=== PATIENT | male | born 1965 | race Caucasian/White ===

== ENCOUNTER → 2017-09-28 12:05 | Outpatient (CLI) | payer BC, SELFPAY ==
--- NOTE | 2017-09-28 12:05 | DT_ITS ---
This patient was seen during an EMR downtime September 27, 2017 - October 04, 2017. This patient may have a combination of paper and electronic documentation or all paper documentation. All documentation is viewable within the e-chart portion of [employer] for each patient visit.
[2017-10-03 08:22] LABS: AST(SGOT) 101 U/L (15-37); Alanine Aminotransfer ALT/SGPT 217 U/L (16-61); Albumin, Serum 4.3 g/dL (3.2-5.0); Alkaline Phosphatase 85 U/L (45-117); BUN 9 mg/dL (7-18); Calcium,Total 8.4 mg/dL (8.5-10.1); Cholesterol 275 mg/dL (200); Creatinine, Serum 0.69 mg/dL (0.70-1.30); EST Glomerular Filtration Rate 130 mL/min (>60); Est Glom Filt Rate - Afr Amer 158 mL/min (>60); Globulin 4.2 g/dL (2.2-4.2); Glucose 108 mg/dL (74-106); Protein, Total 8.5 g/dL (6.4-8.2)
[2017-10-03 08:23] LABS: Anion Gap 10 (5-15); Chloride 105 mmol/L (98-107); GGTP 326 U/L (15-85); High Density Lipoprotein 43 mg/dL; Iron 157 ug/dL (65-175); Potassium 4.2 mmol/L (3.5-5.1); Sodium Level 143 mmol/L (136-145); Triglycerides 431 mg/dL
[2017-10-03 08:24] LABS: Ferritin 932 ng/mL (26-388)
[2017-10-03 10:01] LABS: Absolute Lymphocyte Count 1.37 X10^3/ul (0.83-4.51); Basophil% 0.8 % (0-1); Eosinophil# 0.01 X10^3/uL; Eosinophils% 0.3 % (0-5); Hematocrit 48.2 % (40-54); Hemoglobin 16.3 g/dl (13.0-16.5); Lymphocyte # 1.37 X10^3/ul (4.0); Lymphocyte % 34.5 % (19-41); Mean Corp Hgb Conc 33.8 g/gl (32-36); Mean Corpuscular Hgb 32.4 pg (27.0-32.0); Mean Corpuscular Volume 95.8 fL (80-94); Mean Platelet Vol. 9.3 fl (6.2-12.0); Monocyte# 0.35 X10^3/uL; Monocyte% 8.8 % (0-10); Neutrophil % 55.3 % (47-70); POSITIVE COUNT NO; POSITIVE DIFFERENTIAL NO; POSITIVE MORPHOLOGY NO; Platelet Count 274 K/mm3 (150-450); RBC Distribution Width CV 13.2 % (11.6-14.6); RBC Distribution Width SD 46.5 fl (35.1-43.9); Red Blood Count 5.03 M/mm3 (4.6-6.2)
[2017-10-03 10:02] LABS: Basophil# 0.03 X10^3/uL
[2017-10-03 19:30] LABS: Vitamin B12 390 pg/mL (211-911)
== END ==
LOC: MTLAB 10-02 08:49 → MFPLAB 10-02 17:45
PROVIDERS: Family Provider Family Medicine; PCP Family Medicine; Visit Provider Family Medicine
DX: Z00.00 Encounter for general adult medical examination without abnormal findings (principal); R94.5 Abnormal results of liver function studies
CPT/HCPCS: 36415; 80053; 80061; 82607; 82728; 82977; 83540; 85025

== ENCOUNTER → 2017-10-28 08:31 | Outpatient (CLI) | payer BC, SELFPAY ==
--- NOTE | 2017-10-28 08:37 | US_ITS ---
STUDY: ABDOMINAL ULTRASOUND - RIGHT UPPER QUADRANT REASON FOR VISIT: Male, 51 years old. Elevated liver function tests TECHNIQUE: Transverse and longitudinal imaging of the right upper quadrant was performed using real-time ultrasound. COMPARISON: None. FINDINGS: Liver: The liver measures at least 18 cm. There is increased echogenicity of the liver. The direction of portal flow is hepatopetal. There is no demonstrated mass in the liver. Gallbladder: The gallbladder is normal in size. The gallbladder wall measures 2-3 mm. There is a negative sonographic Restrepo's sign. There is no demonstrated pericholecystic fluid. There are no abnormalities in the lumen of the gallbladder. Common Bile Duct (C.B.D.): The common bile duct measures 2.8 mm. Pancreas: The visualized pancreas is within normal limits. There is no demonstrated mass in the pancreas. Right Kidney: The right kidney measures 11.6 cm. The right cortex measures 1.8 cm. There is no demonstrated mass in the right kidney. There is no dilatation of the collecting system. There is no demonstrated free fluid. US/Liver IMPRESSION: The liver is prominent in size with increased echogenicity which can be seen with fatty infiltration. No discrete masses are seen. No abnormalities are seen in the gallbladder. Electronically Signed: Dai Humphrey MD at 19:18 EDT Tel Direct: [phone], Service support ,
== END ==
PROVIDERS: Family Provider Family Medicine; PCP Family Medicine; Visit Provider Family Medicine
DX: R74.8 Abnormal levels of other serum enzymes (principal)
CPT/HCPCS: 76705

== ENCOUNTER 2018-10-17 05:54 | Emergency (ER) | payer SELFPAY ==
[2018-10-17] VITALS (9 sets, daily range): BP systolic 109–130; BP diastolic 50–75; PULSE 81–88; RESP 14–24; TEMP 35.9; O2SAT 97–100; BMI 32.9
--- NOTE | 2018-10-17 06:07 | CT_ITS ---
HISTORY: Altered mental status, jaundice, quit drinking 2 weeks ago. Unable to obtain more history. EXAMINATION: CT Head or Brain W/O Contrast TECHNIQUE: Multiple axial images were obtained of the brain without intravenous contrast. A radiation dose optimization technique was used for this scan. IV Contrast dosage and agent: None. 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 No hydrocephalus. No intracranial mass, hemorrhage, or acute parenchymal abnormality. No suspicious extra-axial fluid collection. The left mastoid air cells are poor developed. Right mastoid is clear. As visualized, the paranasal sinuses are clear. CT/Brain/Head without Contrast IMPRESSION: Negative exam. No intra-cranial hemorrhage or acute disease identified. Individualized dose optimization techniques were used for this CT. at 0717 Reported and signed by: Catarino Ji MD Electronically Signed: Catarino Ji, at 7:16 EDT Tel , Service support ,
--- NOTE | 2018-10-17 06:08 | EKG12_ITS ---
Test Reason : ACHOLOL WITHDRAWAL Blood Pressure : / mmHG Vent. Rate : 083 BPM Atrial Rate : 083 BPM P-R Int : 180 ms QRS Dur : 100 ms QT Int : 422 ms P-R-T Axes : 054 -26 002 degrees QTc Int : 495 ms Normal sinus rhythm Low voltage QRS Nonspecific T wave abnormality Prolonged QT Poor R- wave progression Abnormal ECG Confirmed by YARY KEE, CHANTALE ([id number]), research editor ТАТЬЯНА ARANDA ([id number]) on 10/19/2018 7:43:27 AM Referred By: TRUE Confirmed By:CHANTALE PRINGLE MD
--- NOTE | 2018-10-17 06:13 | ED.RN ---
NO OLD EKGS IN MUSE
[2018-10-17 06:26] LABS: Absolute Lymphocyte Count 1.92 X10^3/ul (0.83-4.51); Absolute Neutrophil Count 26.6 X10^3/uL (2.0-7.7); Basophil# 0.01 X10^3/uL; Hemoglobin 11.5 g/dl (13.0-16.5); Lymphocyte # 1.92 X10^3/ul (4.0); Lymphocyte % 6.5 % (19-41); Mean Corp Hgb Conc 35.9 g/gl (32-36); Mean Corpuscular Volume 97.3 fL (80-94); Mean Platelet Vol. 10.5 fl (6.2-12.0); Monocyte# 1.03 X10^3/uL; Monocyte% 3.5 % (0-10); Neutrophil # 26.59 X10^3/uL (2.7-7.7); Neutrophil % 89.5 % (47-70); Platelet Count 274 K/mm3 (150-450); RBC Distribution Width CV 18.5 % (11.6-14.6); RBC Distribution Width SD 65.5 fl (35.1-43.9); Red Blood Count 3.29 M/mm3 (4.6-6.2); White Blood Count 29.7 K/mm3 (4.4-11.0)
[2018-10-17 06:27] LABS: POSITIVE COUNT YES; POSITIVE DIFFERENTIAL YES; POSITIVE MORPHOLOGY YES
--- NOTE | 2018-10-17 06:27 | ED.RN ---
sacral edema and jaundice noted to eyes,
[2018-10-17 06:28] LABS: Differential Indicated SCAN CRITERIA MET
--- NOTE | 2018-10-17 06:28 | ED.RN ---
per patient stopped drinking 2 weeks ago, patient has been jaundice since 09/30 per patient noticed weeks prior. ascites started earlier this week getting the worst on wednesday
[2018-10-17 06:50] LABS: Bedside Glucose 130 mg/dL (70-110)
--- NOTE | 2018-10-17 06:51 | ED.RN ---
lab called with critical lab results. bun 166 creatine 11[address] Greco made aware no new orders at this time
[2018-10-17 06:58] LABS: ALB/GLOB Ratio 0.4 RATIO (0.9-2.4); AST(SGOT) 266 U/L (15-37); Alanine Aminotransfer ALT/SGPT 118 U/L (16-61); Albumin, Serum 1.5 g/dL (3.2-5.0); Alkaline Phosphatase 226 U/L (45-117); Anion Gap 23 (5-15); BUN 166 mg/dL (7-18); BUN/Creat Ratio 14.7 RATIO (10-20); Calcium,Total 7.1 mg/dL (8.5-10.1); Chloride 100 mmol/L (98-107); EST Glomerular Filtration Rate 5 mL/min (>60); Est Glom Filt Rate - Afr Amer 6 mL/min (>60); Estimated Creatinine Clearance 7.57 ml/min; Globulin 3.4 g/dL (2.2-4.2); Glucose 123 mg/dL (74-106); Lipase 320 U/L (73-393); Potassium 4.7 mmol/L (3.5-5.1); Protein, Total 4.9 g/dL (6.4-8.2); Sodium Level 134 mmol/L (136-145)
[2018-10-17 07:00] LABS: Platelet Estimate ADEQUATE (ADEQ)
[2018-10-17 07:01] LABS: Differential Comment SCANNED
--- NOTE | 2018-10-17 07:16 | ED.DCSUM_ITS ---
- ER Visit Summary Date of Service: 10/17/18 Chief Complaint: Altered mental status History of Present Illness: The patient is a 52 M who presents with altered mental status that is been getting worse over the past week. noticed that the patient was beginning to get jaundice approximately 3 to 4 weeks ago. noticed that the patient was starting to not act right over the past week. states that the patient has a history of alcohol abuse. states the patient has stopped drinking but still binge drinks at times. Patient is nonverbal and is a poor historian. Physical Examination: Vital signs are stable. Patient is afebrile. Patient is nonverbal. Patient is jaundiced. Heart was regular rate and rhythm. Lungs are clear and equal bilateral. Abdomen is soft. There is some distention noted. There is no guarding noted. Cranial nerves II through XII are grossly intact. Patient is uncooperative with motor and sensory testing. Test Results: EKG showed normal sinus rhythm with a rate of 83. There are no acute ST or T wave changes. CBC shows a leukocytosis of 29.7. Comprehensive metabolic profile shows an elevated BUN of 166 and a creatinine of 11.3. Total bilirubin was 29.8. Alk phos was 226. ALT was 118 and AST was 266. Ammonia level was elevated at 180. Troponin was normal. CT scan of the brain was obtained. Emergency Department Course and Treatment: Patient was given IV fluids. Patient was given a dose of rectal lactulose. Patient was still nonverbal on reevaluation. Case was discussed with the hospitalist. Hospitalist felt the patient may need to be transferred for GI evaluation. came into the emergency department and we discussed options. is unsure if she wants aggressive treatment versus hospice and palliative care treatment. She wants to discuss the options with other family members. Disposition: Patient was turned over to the oncoming physician pending family decision and hospice evaluation Impression: 1. Hepatic encephalopathy 2. Hepatorenal syndrome 3. Leukocytosis This note was generated with [employer] dictation software. It may contain incorrect words, spelling, and punctuation that were not noted in review of the chart prior to signing ED Disposition - Plan for ED Patient: Referrals: Care Physician,No Primary [Primary Care Provider] -
[2018-10-17 07:18] LABS: Mucous, Urine 0 SEEN /hpf (<or=2+)
[2018-10-17 07:20] LABS: Color, Urine Yellow (Yellow); Glucose, Dipstick Normal (Normal); Ketone-Dipstick 5 mg/dl (Negative); Leukocyte Esterase-Dipstick 25 /ul (Negative); Nitrite-Dipstick Positive (Negative); Occult Blood-Urine 50 /ul (Negative); Protein-Dipstick 100 mg/dl (Negative); Urine Clarity Sl. Cloudy (Clear); Urine Urobilinogen 4 mg/dl (Normal)
[2018-10-17 07:21] LABS: Urine Bilirubin Dipstick 6 mg/dL (Negative)
[2018-10-17 07:33] LABS: Bacteria 2+ /hpf (None Seen); Hyaline Cast 0-5 SEEN /lpf (0-5); Red Blood Cells-Urine 0-5 SEEN /hpf (0-5); Squamous Epithelial Cells - UA 0-5 SEEN /hpf (0-5); White Blood Cells 0-5 SEEN /hpf (0-5)
[2018-10-17] MEDS: Lactulose 20 GM/30 ML UDC 200 GM RECTAL (08:24)
[2018-10-17] MEDS: 0.9% Normal Saline 1,000 ML 1000 ML IV (08:24)
--- NOTE | 2018-10-17 11:36 | ED.DEP ---
ED Disposition - Plan for ED Patient: Disposition: Home or Assisted Living Instructions: Altered Loc, Renal Insufficiency, Ammonia
[2018-10-17] MEDS: fentaNYL 100 MCG/2 ML Ampul 25 MCG IV (12:15)
[2018-10-17] MEDS: Ondansetron 4 MG/2 ML Vial IV (12:15)
== END 2018-10-17 13:10 | disposition short-term general hospital (02) ==
PROVIDERS: Emergency Provider Emergency Medicine; Family Provider Family Medicine
DX: K72.90 Hepatic failure, unspecified without coma (principal); K76.7 Hepatorenal syndrome; D72.829 Elevated white blood cell count, unspecified
CPT/HCPCS: 70450; 80053; 81001; 82140; 82962; 83690; 84484; 85025; 93005; 96361; 96374; 96375; 99285; J7030; A4216; J2405